=== PATIENT | male | born 1950 | race African-American/Black ===

== ENCOUNTER 2022-11-25 14:58 | Inpatient (IN) | payer MEDICARE, MEDICAID ==
[~2022-11-25] VITALS: Ht 182.9 cm; Wt 105.2 kg
[2022-11-25] MEDS ORDERED: SODIUM CHLORIDE 0.9% 1,000 ML IV ONE (15:30)
[2022-11-25] MEDS ORDERED: DEXTROSE 50% WATER 50ML SYRINGE IV ONE ×2 (15:30)
[2022-11-25] MEDS ORDERED: DEXTROSE 50% WATER 50ML SYRINGE IV NR (15:45)
[2022-11-25 16:02] LABS: BASOPHILS % 0.2 % (0.0-2.0); CHLORIDE 106 mEq/L (98-107); EOSINOPHILS % 0.3 % (0.0-5.0); HEMATOCRIT. 31.2 % (42.0-52.0); HEMOGLOBIN. 10.9 g/dL (14.0-18.0); LYMPHOCYTES % 9.3 % (20.0-50.0); MEAN CORPUSCULAR HEMOGLOBIN 28.3 pg (28.0-32.0); MEAN CORPUSCULAR VOLUME 80.5 fL (80.0-94.0); MEAN PLATELET VOLUME 7.7 fl (7.4-10.4); NEUTROPHILS % 85.2 % (40.0-76.0); PLATELET 205 x1000/uL (130-400); RED BLOOD CELL COUNT 3.87 mill/uL (4.7-6.1); RED CELL DISTRIBUTION WIDTH 24.6 % (11.6-14.6)
[2022-11-25 16:13] LABS: ETHANOL BLOOD < 10 mg/dL
[2022-11-25] MEDS ORDERED: SODIUM CHLORIDE 0.9% 1000ML BAG (SEPSIS BOLUS) IV ONE (17:00)
[2022-11-25] MEDS ORDERED: OSELTAMIVIR 75MG CAPSULE PO ONE (17:00)
[2022-11-25] MEDS ORDERED: DEXTROSE 10% WATER 500 ML IV ONE (17:15)
[2022-11-25] MEDS ORDERED: ASPIRIN 81MG TABLET PO ONE (17:15)
[2022-11-25] MEDS: CEFTRIAXONE 1 G PREMIX 50 ML IV ONE ×2 (17:26→17:31)
[2022-11-25] MEDS: AZITHROMYCIN 500MG/250ML 250 ML IV ONE ×3 (17:26→18:34)
[2022-11-25 17:59] LABS: PLATELET ESTIMATE NORMAL
[2022-11-25] MEDS ORDERED: CEFTRIAXONE 1,000 MG in DEXTROSE 5% WATER 50 ML IV NR (18:30)
[2022-11-25 18:33] LABS: CLARITY URINE CLEAR (CLEAR); COLOR URINE ORANGE (YELLOW); KETONES URINE TRACE (NEGATIVE); LEUKOCYTE ESTERASE URINE TRACE (NEGATIVE); NITRITE URINE NEGATIVE (NEGATIVE); OCCULT BLOOD URINE 3+ (NEGATIVE); PH URINE 5.5 (4.5-8.0); PROTEIN URINE 2+ (NEGATIVE); SPECIFIC GRAVITY URINE 1.018 (1.005-1.030)
[2022-11-25 18:45] LABS: *AMPHETAMINES SCREEN URINE NEGATIVE (NEGATIVE); *BARBITURATES SCREEN URINE NEGATIVE (NEGATIVE); *BENZODIAZEPINES SCREEN URINE NEGATIVE (NEGATIVE); *COCAINE SCREEN URINE NEGATIVE (NEGATIVE); CANNABINOID URINE SCREEN NEGATIVE (NEGATIVE); METHADONE URINE SCREEN NEGATIVE (NEGATIVE); OPIATES URINE SCREEN NEGATIVE (NEGATIVE); PHENCYCLIDINE URINE SCREEN NEGATIVE (NEGATIVE)
[2022-11-26] MEDS ORDERED: IPRATROPIUM/ALBUTEROL 0.5-3(2.5)MG/3ML NEB HHN PRN (11:15)
[2022-11-26] MEDS: DEXT 5%/0.45% NACL 1000ML 1,000 ML IV SCH (11:27)
[2022-11-26] MEDS ORDERED: DEXTROSE 50% WATER 50ML SYRINGE IV NR ×3 (11:30→16:30)
[2022-11-26] MEDS ORDERED: LEVOFLOXACIN 750MG PREMIX 150 ML IV SCH (11:30)
[2022-11-26] MEDS: BLOOD SUGAR DIAGNOSTIC STRIP TEST SCH ×3 (11:39→21:35)
[2022-11-26] MEDS ORDERED: DEXT 10% WATER 1,000 ML IV ONE (14:45)
[2022-11-26] MEDS: ACETAMINOPHEN 325MG TABLET PO PRN (23:29)
[2022-11-27] VITALS (9 sets, daily range): BP systolic 143–173; BP diastolic 69–157
[2022-11-27] MEDS: DEXT 5%/0.45% NACL 1000ML 1,000 ML IV SCH (00:49)
[2022-11-27 05:06] LABS: BASOPHILS % 0.3 % (0.0-2.0); EOSINOPHILS % 1.8 % (0.0-5.0); HEMATOCRIT. 26.8 % (42.0-52.0); HEMOGLOBIN. 9.4 g/dL (14.0-18.0); MEAN CORPUSCULAR HEMOGLOBIN 27.9 pg (28.0-32.0); MEAN CORPUSCULAR VOLUME 79.8 fL (80.0-94.0); MEAN PLATELET VOLUME 7.7 fl (7.4-10.4); MONOCYTES % 10.1 % (2.0-8.0); NEUTROPHILS % 74.8 % (40.0-76.0); PLATELET 195 x1000/uL (130-400); RED BLOOD CELL COUNT 3.37 mill/uL (4.7-6.1); RED CELL DISTRIBUTION WIDTH 24.2 % (11.6-14.6)
[2022-11-27] MEDS: BLOOD SUGAR DIAGNOSTIC STRIP TEST SCH ×5 (06:39→21:20)
[2022-11-27] MEDS: DEXT 10% WATER 1,000 ML IV SCH ×2 (07:17→14:17)
[2022-11-27] MEDS ORDERED: IPRATROPIUM BROMIDE (0.02%) 0.5MG/2.5ML NEB HHN PRN (12:45)
[2022-11-27] MEDS ORDERED: ALBUTEROL (0.083%) 2.5MG/3ML NEB HHN PRN (12:45)
[2022-11-27] MEDS: ACETAMINOPHEN 325MG TABLET PO PRN (14:14)
[2022-11-27] MEDS: AMLODIPINE 10MG TABLET PO SCH (14:16)
[2022-11-27] MEDS: ONDANSETRON HCL 4MG/2ML INJ IV PRN (15:27)
[2022-11-27] MEDS ORDERED: NALOXONE HCL 0.4MG/ML VIAL IV PRN (18:15)
[2022-11-27] MEDS: HYDROCODONE/ACETAMINOPHEN 5/325MG TABLET PO PRN (22:33)
[2022-11-28] VITALS (12 sets, daily range): BP systolic 97–147; BP diastolic 58–85
[2022-11-28] MEDS: HYDROCODONE/ACETAMINOPHEN 5/325MG TABLET PO PRN ×3 (03:13→21:20)
[2022-11-28 07:34] LABS: BASOPHILS % 0.2 % (0.0-2.0); HEMATOCRIT. 24.8 % (42.0-52.0); HEMOGLOBIN. 9.1 g/dL (14.0-18.0); LYMPHOCYTES % 11.5 % (20.0-50.0); MEAN CORPUSCULAR HEMOGLOBIN 28.3 pg (28.0-32.0); MEAN CORPUSCULAR VOLUME 76.7 fL (80.0-94.0); MEAN PLATELET VOLUME 7.2 fl (7.4-10.4); MONOCYTES % 7.8 % (2.0-8.0); NEUTROPHILS % 78.5 % (40.0-76.0); PLATELET 196 x1000/uL (130-400); RED BLOOD CELL COUNT 3.23 mill/uL (4.7-6.1); RED CELL DISTRIBUTION WIDTH 23.7 % (11.6-14.6)
[2022-11-28] MEDS: BLOOD SUGAR DIAGNOSTIC STRIP TEST SCH ×4 (07:46→21:19)
[2022-11-28] MEDS: DEXT 10% WATER 1,000 ML IV SCH ×2 (08:39→23:47)
[2022-11-28] MEDS: AMLODIPINE 10MG TABLET PO SCH (08:39)
[2022-11-28 10:43] LABS: BG BASE EXCESS -6.7 mmol/L (-2.0-2.0); BG CARBOXYHEMOGLOBIN 0.9 % (0.5-1.5); BG DEOXYHEMOGLOBIN 1.8 % (0.0-5.0); BG FRACTION INSPIRED OXYGEN 36; BG HCO3 ACT 18.4 mmol/L (22.0-26.0); BG METHEMOGLOBIN 0.4 % (0.0-1.5); BG OXYGEN SATURATION 98.2 % (92.0-98.5); BG OXYHEMOGLOBIN 96.9 % (94.0-97.0); BG PCO2 35.4 mmHg (35.0-45.0); BG PH 7.334 (7.350-7.450); BG PO2 131.6 mmHg (75.0-100.0); BG SAMPLE SITE RIGHT RADIAL; BG TOTAL HEMOGLOBIN 11.7 g/dL (12.0-18.0); BG VENT MODE NASAL CANNULA
[2022-11-28] MEDS: SODIUM CHLORIDE 0.9% 1,000 ML IV SCH ×2 (10:51→22:34)
[2022-11-28] MEDS ORDERED: LEVOFLOXACIN 500MG PREMIX 100 ML IV SCH (11:00)
[2022-11-28] MEDS: LEVOFLOXACIN 250MG PREMIX 100 ML IV SCH (11:52)
[2022-11-28 13:54] LABS: CREATINE KINASE 1227 IU/L (39-308)
[2022-11-28 15:53] LABS: HEPATITIS B SURFACE ANTIGEN NEGATIVE
[2022-11-28] MEDS: ACETAMINOPHEN 325MG TABLET PO PRN (23:25)
[2022-11-29] VITALS (9 sets, daily range): BP systolic 112–148; BP diastolic 60–100
[2022-11-29] MEDS: HYDROCODONE/ACETAMINOPHEN 5/325MG TABLET PO PRN (04:58)
[2022-11-29] MEDS: DEXT 10% WATER 1,000 ML IV SCH (08:00)
[2022-11-29] MEDS: BLOOD SUGAR DIAGNOSTIC STRIP TEST SCH ×4 (08:19→21:00)
[2022-11-29] MEDS: AMLODIPINE 10MG TABLET PO SCH (09:25)
[2022-11-29] MEDS ORDERED: LIDOCAINE HCL 1% 10 MG/ML 10ML VIAL ONE (12:20)
[2022-11-29 17:25] LABS: CHLORIDE 102 mEq/L (98-107)
[2022-11-29] MEDS: DOCUSATE SODIUM 100MG CAPSULE PO SCH (17:27)
[2022-11-29] MEDS: SODIUM CHLORIDE 0.9% 1,000 ML IV SCH (17:28)
[2022-11-29 17:39] LABS: T4 FREE 1.19 ng/dL (0.76-1.46)
[2022-11-29 17:48] LABS: BASOPHILS % 0.2 % (0.0-2.0); HEMATOCRIT. 22.1 % (42.0-52.0); LYMPHOCYTES % 11.4 % (20.0-50.0); MEAN CORPUSCULAR HEMOGLOBIN 27.9 pg (28.0-32.0); MEAN CORPUSCULAR VOLUME 77.5 fL (80.0-94.0); NEUTROPHILS % 75.4 % (40.0-76.0); PLATELET 189 x1000/uL (130-400); RED BLOOD CELL COUNT 2.85 mill/uL (4.7-6.1); RED CELL DISTRIBUTION WIDTH 23.4 % (11.6-14.6)
[2022-11-30] VITALS (12 sets, daily range): BP systolic 114–144; BP diastolic 36–80
[2022-11-30] MEDS: SODIUM CHLORIDE 0.9% 1,000 ML IV SCH ×2 (05:24→16:43)
[2022-11-30] MEDS: DEXT 10% WATER 1,000 ML IV SCH ×2 (05:24→16:58)
[2022-11-30] MEDS: BLOOD SUGAR DIAGNOSTIC STRIP TEST SCH ×4 (07:30→21:00)
[2022-11-30 07:40] LABS: CHLORIDE 104 mEq/L (98-107)
[2022-11-30 07:56] LABS: BASOPHILS % 0.2 % (0.0-2.0); EOSINOPHILS % 1.9 % (0.0-5.0); HEMATOCRIT. 21.6 % (42.0-52.0); HEMOGLOBIN. 7.9 g/dL (14.0-18.0); LYMPHOCYTES % 12.1 % (20.0-50.0); MEAN CORPUSCULAR VOLUME 77.1 fL (80.0-94.0); MEAN PLATELET VOLUME 6.9 fl (7.4-10.4); MONOCYTES % 11.3 % (2.0-8.0); NEUTROPHILS % 74.5 % (40.0-76.0); PLATELET 176 x1000/uL (130-400); RED BLOOD CELL COUNT 2.81 mill/uL (4.7-6.1); RED CELL DISTRIBUTION WIDTH 23.1 % (11.6-14.6)
[2022-11-30 08:14] LABS: HAPTOGLOBIN 288 mg/dL (30-200); PHOSPHORUS 4.3 mg/dL (2.5-4.9)
[2022-11-30] MEDS: DOCUSATE SODIUM 100MG CAPSULE PO SCH ×2 (09:02→16:24)
[2022-11-30] MEDS: AMLODIPINE 10MG TABLET PO SCH (09:02)
[2022-11-30] MEDS: LEVOFLOXACIN 250MG PREMIX 100 ML IV SCH (11:11)
[2022-11-30] MEDS: HYDROCODONE/ACETAMINOPHEN 10/325MG TABLET PO PRN (14:53)
[2022-11-30] MEDS: DICLOFENAC SODIUM 1% GEL 50GM TOP SCH (18:52)
[2022-11-30] MEDS: LIDOCAINE HCL 4% CREAM 76GM TUBE TP SCH (18:52)
[2022-11-30] MEDS: OLANZAPINE 5MG TABLET PO SCH (21:15)
[2022-11-30] MEDS: BACLOFEN 10MG TABLET PO SCH (21:15)
[2022-11-30] MEDS: ASPIRIN 81MG TABLET PO SCH (21:15)
[2022-12-01] VITALS (14 sets, daily range): BP systolic 103–145; BP diastolic 49–77
[2022-12-01] MEDS: LIDOCAINE HCL 4% CREAM 76GM TUBE TP SCH ×4 (05:36→22:06)
[2022-12-01] MEDS: BLOOD SUGAR DIAGNOSTIC STRIP TEST SCH ×3 (07:30→22:06)
[2022-12-01 08:56] LABS: CHLORIDE 105 mEq/L (98-107)
[2022-12-01 09:02] LABS: BASOPHILS % 0.3 % (0.0-2.0); EOSINOPHILS % 2.3 % (0.0-5.0); HEMOGLOBIN. 7.1 g/dL (14.0-18.0); LYMPHOCYTES % 15.8 % (20.0-50.0); MEAN CORPUSCULAR HEMOGLOBIN 27.4 pg (28.0-32.0); MEAN CORPUSCULAR VOLUME 78.1 fL (80.0-94.0); MEAN PLATELET VOLUME 7.3 fl (7.4-10.4); NEUTROPHILS % 72.6 % (40.0-76.0); PLATELET 181 x1000/uL (130-400); RED BLOOD CELL COUNT 2.57 mill/uL (4.7-6.1); RED CELL DISTRIBUTION WIDTH 22.7 % (11.6-14.6)
[2022-12-01 09:06] LABS: CREATINE KINASE 715 IU/L (39-308); HDL CHOLESTEROL 25 mg/dL (40-59); LDL CHOLESTEROL 54 mg/dL (5-100); PHOSPHORUS 3.6 mg/dL (2.5-4.9); TOTAL IRON BINDING CAPACITY 147 ug/dL (250-450)
[2022-12-01 09:42] LABS: HEMATOCRIT. 20.1 % (42.0-52.0)
[2022-12-01 09:48] LABS: FOLIC ACID (FOLATE) SERUM 7.3 ng/mL (>5.38)
[2022-12-01] MEDS: DOCUSATE SODIUM 100MG CAPSULE PO SCH ×2 (10:03→17:00)
[2022-12-01] MEDS: AMLODIPINE 10MG TABLET PO SCH (10:05)
[2022-12-01] MEDS: DICLOFENAC SODIUM 1% GEL 50GM TOP SCH ×3 (10:07→22:04)
[2022-12-01] MEDS: BACLOFEN 10MG TABLET PO SCH (10:07)
[2022-12-01] MEDS: OLANZAPINE 5MG TABLET PO SCH (10:07)
[2022-12-01] MEDS: ASPIRIN 81MG TABLET PO SCH (10:07)
[2022-12-01] MEDS: HYDROCODONE/ACETAMINOPHEN 10/325MG TABLET PO PRN (10:16)
[2022-12-01] MEDS: ONDANSETRON HCL 4MG/2ML INJ IV PRN (10:21)
[2022-12-01] MEDS ORDERED: LORAZEPAM 2MG/ML CPJ IV NR (10:45)
[2022-12-01] MEDS ORDERED: DIPHENHYDRAMINE 50MG/ML VIAL IV NR (10:45)
[2022-12-01] MEDS ORDERED: HALOPERIDOL LACTATE 5MG/ML VIAL IM NR (10:45)
[2022-12-01] MEDS: DEXT 5%/0.9% NACL 1,000 ML IV SCH ×2 (22:00→22:10)
[2022-12-01] MEDS: ATORVASTATIN CALCIUM 40MG TABLET PO SCH (22:03)
[2022-12-02] VITALS (15 sets, daily range): BP systolic 96–146; BP diastolic 49–84
[2022-12-02] MEDS: BLOOD SUGAR DIAGNOSTIC STRIP TEST SCH ×4 (07:04→22:33)
[2022-12-02] MEDS: OLANZAPINE 5MG TABLET PO SCH (08:40)
[2022-12-02] MEDS: DICLOFENAC SODIUM 1% GEL 50GM TOP SCH ×3 (08:40→17:29)
[2022-12-02] MEDS: DOCUSATE SODIUM 100MG CAPSULE PO SCH ×2 (08:40→17:27)
[2022-12-02] MEDS: DEXT 5%/0.9% NACL 1,000 ML IV SCH ×2 (08:40→18:04)
[2022-12-02] MEDS: LIDOCAINE HCL 4% CREAM 76GM TUBE TP SCH ×4 (08:41→21:00)
[2022-12-02 10:00] LABS: BASOPHILS % 0.7 % (0.0-2.0); HEMOGLOBIN. 7.3 g/dL (14.0-18.0); MEAN CORPUSCULAR HEMOGLOBIN 27.8 pg (28.0-32.0); MEAN CORPUSCULAR VOLUME 77.1 fL (80.0-94.0); MONOCYTES % 6.3 % (2.0-8.0); PLATELET 210 x1000/uL (130-400); RED BLOOD CELL COUNT 2.65 mill/uL (4.7-6.1); RED CELL DISTRIBUTION WIDTH 22.4 % (11.6-14.6)
[2022-12-02 10:18] LABS: HEMATOCRIT. 20.4 % (42.0-52.0)
[2022-12-02 10:22] LABS: PHOSPHORUS 3.5 mg/dL (2.5-4.9)
[2022-12-02] MEDS: LEVOFLOXACIN 250MG PREMIX 100 ML IV SCH (11:23)
[2022-12-02] MEDS: HYDROCODONE/ACETAMINOPHEN 10/325MG TABLET PO PRN (16:39)
[2022-12-02] MEDS: ATORVASTATIN CALCIUM 40MG TABLET PO SCH (22:34)
[2022-12-03] VITALS (17 sets, daily range): BP systolic 103–132; BP diastolic 58–82
[2022-12-03 05:41] LABS: CHLORIDE 111 mEq/L (98-107)
[2022-12-03 05:51] LABS: CREATINE KINASE 301 IU/L (39-308); PHOSPHORUS 3.2 mg/dL (2.5-4.9)
[2022-12-03 06:14] LABS: BASOPHILS % 0.5 % (0.0-2.0); EOSINOPHILS % 3.5 % (0.0-5.0); LYMPHOCYTES % 19.1 % (20.0-50.0); MEAN CORPUSCULAR HEMOGLOBIN 27.1 pg (28.0-32.0); MEAN CORPUSCULAR VOLUME 75.8 fL (80.0-94.0); MONOCYTES % 6.6 % (2.0-8.0); NEUTROPHILS % 70.3 % (40.0-76.0); PLATELET 197 x1000/uL (130-400); RED BLOOD CELL COUNT 2.54 mill/uL (4.7-6.1); RED CELL DISTRIBUTION WIDTH 21.8 % (11.6-14.6)
[2022-12-03 06:20] LABS: INR 1.2; PROTHROMBIN TIME 12.3 sec (9.6-11.0)
[2022-12-03] MEDS: DEXT 5%/0.9% NACL 1,000 ML IV SCH ×2 (07:00→19:03)
[2022-12-03] MEDS: BLOOD SUGAR DIAGNOSTIC STRIP TEST SCH ×4 (07:30→21:46)
[2022-12-03 07:50] LABS: HEMATOCRIT. 19.2 % (42.0-52.0)
[2022-12-03 07:51] LABS: HEMOGLOBIN. 6.9 g/dL (14.0-18.0)
[2022-12-03] MEDS: DOCUSATE SODIUM 100MG CAPSULE PO SCH ×2 (08:04→17:00)
[2022-12-03] MEDS: LIDOCAINE HCL 4% CREAM 76GM TUBE TP SCH ×4 (08:40→21:46)
[2022-12-03] MEDS: DICLOFENAC SODIUM 1% GEL 50GM TOP SCH ×3 (08:40→19:04)
[2022-12-03 09:09] LABS: C-PEPTIDE 11.7 ng/mL (1.1-4.4)
[2022-12-03] MEDS ORDERED: NALOXONE HCL 0.4MG/ML VIAL IV PRN (11:45)
[2022-12-03] MEDS ORDERED: PROPOFOL 200MG/20ML VIAL IV ONE (15:41)
[2022-12-03] MEDS ORDERED: DEXAMETHASONE 4MG/ML 1ML VIAL ONE (15:44)
[2022-12-03] MEDS ORDERED: ONDANSETRON HCL 4MG/2ML INJ ONE (15:44)
[2022-12-03] MEDS ORDERED: MIDAZOLAM HCL 2 MG/2 ML VIAL ONE (15:53)
[2022-12-03] MEDS: METHYLPREDNISOLONE SOD SUCC 500 MG in DEXT 5% WATER 100 ML IV SCH (18:57)
[2022-12-03] MEDS: ATORVASTATIN CALCIUM 40MG TABLET PO SCH (21:43)
[2022-12-04] VITALS: BP 129/69
[2022-12-04] MEDS: DEXT 5%/0.9% NACL 1,000 ML IV SCH (00:59)
[2022-12-04 04:00] VITALS: BP 136/72
[2022-12-04] MEDS: BLOOD SUGAR DIAGNOSTIC STRIP TEST SCH ×4 (07:10→21:00)
[2022-12-04 07:50] LABS: HEMATOCRIT. 23.7 % (42.0-52.0); HEMOGLOBIN. 8.5 g/dL (14.0-18.0); MEAN CORPUSCULAR HEMOGLOBIN 27.6 pg (28.0-32.0); MEAN CORPUSCULAR VOLUME 76.8 fL (80.0-94.0); PLATELET 212 x1000/uL (130-400); RED BLOOD CELL COUNT 3.09 mill/uL (4.7-6.1); RED CELL DISTRIBUTION WIDTH 22.2 % (11.6-14.6)
[2022-12-04 08:02] LABS: PHOSPHORUS 3.4 mg/dL (2.5-4.9)
[2022-12-04 08:13] VITALS: BP 134/76
[2022-12-04] MEDS: DOCUSATE SODIUM 100MG CAPSULE PO SCH ×2 (09:00→16:55)
[2022-12-04] MEDS: METHYLPREDNISOLONE SOD SUCC 500 MG in DEXT 5% WATER 100 ML IV SCH (09:03)
[2022-12-04] MEDS: DICLOFENAC SODIUM 1% GEL 50GM TOP SCH ×3 (09:06→16:56)
[2022-12-04] MEDS: LIDOCAINE HCL 4% CREAM 76GM TUBE TP SCH ×4 (09:06→21:00)
[2022-12-04 09:07] LABS: ANTI-DNA DOUBLE STRANDED QUANT < 1 IU/mL (0-9)
[2022-12-04] MEDS ORDERED: SODIUM POLYSTYRENE SULFONATE 15 G/60 ML BOT PO NR (09:45)
[2022-12-04 12:02] VITALS: BP 154/86
[2022-12-04 12:50] LABS: PLATELET ESTIMATE NORMAL
[2022-12-04 16:00] VITALS: BP_SYST 100; BP_SYST 138; BP_DIAS 56; BP_DIAS 78
[2022-12-04 17:39] LABS: HEMATOCRIT 25.8 % (42.0-52.0); HEMOGLOBIN 9.2 g/dL (14.0-18.0)
[2022-12-04 20:00] VITALS: BP 133/66
[2022-12-04] MEDS: ATORVASTATIN CALCIUM 40MG TABLET PO SCH (22:14)
[2022-12-05] VITALS: BP 132/75
[2022-12-05 04:00] VITALS: BP 129/71
[2022-12-05 07:24] LABS: HEMATOCRIT. 22.5 % (42.0-52.0); MEAN CORPUSCULAR HEMOGLOBIN 27.9 pg (28.0-32.0); MEAN CORPUSCULAR VOLUME 78.8 fL (80.0-94.0); MEAN PLATELET VOLUME 7.2 fl (7.4-10.4); PLATELET 226 x1000/uL (130-400); RED BLOOD CELL COUNT 2.85 mill/uL (4.7-6.1); RED CELL DISTRIBUTION WIDTH 22.4 % (11.6-14.6)
[2022-12-05] MEDS: BLOOD SUGAR DIAGNOSTIC STRIP TEST SCH ×2 (07:35→11:13)
[2022-12-05 08:00] VITALS: BP 118/70
[2022-12-05 08:02] LABS: PHOSPHORUS 3.6 mg/dL (2.5-4.9)
[2022-12-05] MEDS: DOCUSATE SODIUM 100MG CAPSULE PO SCH (08:38)
[2022-12-05] MEDS: METHYLPREDNISOLONE SOD SUCC 500 MG in DEXT 5% WATER 100 ML IV SCH (08:38)
[2022-12-05] MEDS: DICLOFENAC SODIUM 1% GEL 50GM TOP SCH ×2 (08:39→12:26)
[2022-12-05] MEDS: LIDOCAINE HCL 4% CREAM 76GM TUBE TP SCH ×2 (08:39→12:26)
[2022-12-05] MEDS ORDERED: LIP40 PO (11:15)
[2022-12-05] MEDS ORDERED: DOCU-150 PO (11:15)
[2022-12-05] MEDS ORDERED: P20 MT (11:15)
[2022-12-05] MEDS ORDERED: TOPUD PO (11:15)
[2022-12-05] MEDS ORDERED: LIDO76.5 TP (11:15)
[2022-12-05 11:22] VITALS: BP 118/70
[2022-12-05 12:00] VITALS: BP 142/72
[2022-12-05 13:07] LABS: PRO INSULIN 58.4 pmol/L (0.0-10.0)
[2022-12-05 15:09] LABS: ANA IFA Negative (.)
[2022-12-05 23:20] LABS: PLATELET ESTIMATE NORMAL
[2022-12-07 17:11] LABS: CYC CITRULLINATED PEP IgG/IgA 3 units (0-19)
[2022-12-08 19:10] LABS: ANTI-MYELOPEROXIDASE AB < 0.2 units (0.0-0.9); ANTI-PROTEINASE 3 ABS < 0.2 units (0.0-0.9)
[2022-12-09 13:10] LABS: ATYPICAL P-ANCA <1:20 titer (Neg:<1:20); CYTOPLASMIC C-ANCA <1:20 titer (Neg:<1:20); PERINUCLEAR P-ANCA <1:20 titer (Neg:<1:20)
== END 2022-12-05 15:10 | DRG 871 ==
LOC: ER 14:58 → EDBEDREQ 17:03 → MICUSO 18:08 → EDBEDREQSVC 18:16 → EDBEDREQTM 18:16 → EDBEDREQ 18:16 → 5EST 11-27 11:41 → 8WST 12-03 12:10
PROVIDERS: ADMIT Internal Medicine; ATTEND Internal Medicine
PROC: 05H533Z Insertion of Infusion Device into Right Subclavian Vein, Percutaneous Approach (ICD-10-PCS; 2022-11-29)
PROC: B546ZZA Ultrasonography of Right Subclavian Vein, Guidance (ICD-10-PCS; 2022-11-29)
PROC: 0DJ68ZZ Inspection of Stomach, Via Natural or Artificial Opening Endoscopic (ICD-10-PCS; principal; 2022-12-03)
PROC: 30233N1 Transfusion of Nonautologous Red Blood Cells into Peripheral Vein, Percutaneous Approach (ICD-10-PCS; 2022-12-03)
DX: A41.9 Sepsis, unspecified organism (principal); G82.50 Quadriplegia, unspecified; J18.9 Pneumonia, unspecified organism; J96.00 Acute respiratory failure, unspecified whether with hypoxia or hypercapnia; N17.0 Acute kidney failure with tubular necrosis; I21.4 Non-ST elevation (NSTEMI) myocardial infarction; G92.8 Other toxic encephalopathy; C90.00 Multiple myeloma not having achieved remission; E87.20 Acidosis, unspecified; E87.1 Hypo-osmolality and hyponatremia; E46 Unspecified protein-calorie malnutrition; M62.82 Rhabdomyolysis; K56.7 Ileus, unspecified; J44.0 Chronic obstructive pulmonary disease with (acute) lower respiratory infection; I25.10 Atherosclerotic heart disease of native coronary artery without angina pectoris; K76.0 Fatty (change of) liver, not elsewhere classified; R16.2 Hepatomegaly with splenomegaly, not elsewhere classified; D50.9 Iron deficiency anemia, unspecified; M13.0 Polyarthritis, unspecified; Z20.822 Contact with and (suspected) exposure to COVID-19; E11.65 Type 2 diabetes mellitus with hyperglycemia; E11.649 Type 2 diabetes mellitus with hypoglycemia without coma; N18.9 Chronic kidney disease, unspecified; I12.9 Hypertensive chronic kidney disease with stage 1 through stage 4 chronic kidney disease, or unspecified chronic kidney disease; D63.1 Anemia in chronic kidney disease; R74.01 Elevation of levels of liver transaminase levels; R16.1 Splenomegaly, not elsewhere classified; E66.9 Obesity, unspecified; E79.0 Hyperuricemia without signs of inflammatory arthritis and tophaceous disease; E11.22 Type 2 diabetes mellitus with diabetic chronic kidney disease; E78.00 Pure hypercholesterolemia, unspecified; K44.9 Diaphragmatic hernia without obstruction or gangrene; M47.9 Spondylosis, unspecified; M51.26 Other intervertebral disc displacement, lumbar region; I25.2 Old myocardial infarction; Z68.31 Body mass index [BMI] 31.0-31.9, adult; Z74.01 Bed confinement status; Z87.442 Personal history of urinary calculi; Z87.891 Personal history of nicotine dependence; Z90.49 Acquired absence of other specified parts of digestive tract; Z82.49 Family history of ischemic heart disease and other diseases of the circulatory system
CPT/HCPCS: 36415; 36573; 36600; 71045; 71250; 72141; 72146; 72148; 74018; 76700; 80048; 80053; 80061; 80076; 80305; 80320; 81003; 82024; 82248; 82270; 82375; 82533; 82550; 82607; 82728; 82746; 82805; 82962; 83010; 83036; 83520; 83525; 83540; 83550; 83605; 83615; 83735; 83880; 84100; 84134; 84206; 84439; 84443; 84484; 84550; 84681; 85014; 85018; 85025; 85044; 85651; 86160; 86200; 86225; 86256; 86337; 86431; 86705; 86709; 86803; 86850; 86870; 86900; 86920; 87340; 87426; 87804; 88305; 92523; 93005; 93880; 94640; 97110; 97162; 97166; 97530; 97535; 99291; C1725; C9803; J0456; J0696; J1100; J1956; J2250; J2405; J2704; J2930; J3490; J7030; J7042; J7060; P9016; A4315; G0480